=== PATIENT | male | born 1960 | race Caucasian/White ===

== ENCOUNTER 2017-05-26 07:05 | Day surgery (SDC) | payer BC ==
[~2017-05-26 07:05] MED LIST: Lactated Ringers 1,000 ML IV SCH; Lidocaine 1%/Sod Bicarbonate in NS 8.4% 1 ML Syringe PRN; Sodium Chloride 0.9% 10 ML Syringe FLUSH PRN
[2017-05-26] MEDS ORDERED: Propofol 200 MG/20 ML SDV ONE ×3 (07:35→08:39)
--- NOTE | 2017-05-26 07:40 | PCM.PREANE ---
Preanesthetic Assessment - Procedure Proposed Procedure: Diagnostic colonoscopy - Anesthesia/Transfusion/Family Hx Anesthesia History: Prior Anesthesia Without Reaction Family History of Anesthesia Reaction: No Transfusion History: No Prior Transfusion(s) - Review of Systems General: No Symptoms Pulmonary: Other (bronchitis recently resolved 2 weeks ago, SCOTT with CPAP ) Cardiovascular: Other (HTN, HLD) Gastrointestinal: Other (GERD) Neurological: No Symptoms Other: Reports: None, Thyroid Problems (hypothyroidism ) - Physical Assessment NPO Status Date: 05/25/17 NPO Status Time: 22:30 Pulse: 60 O2 Sat by Pulse Oximetry: 96 Respiratory Rate: 16 Blood Pressure: 153/90 Height: 1.75 m Weight: 115 kg ASA Class: 2 Mental Status: Alert & Oriented x3 Airway Class: Mallampati = 2 Dentition: Reports: Normal Dentition Thyro-Mental Finger Breadths: 3 Mouth Opening Finger Breadths: 3 ROM/Head Extension: Full Lungs: Clear to Auscultation, Normal Respiratory Effort Cardiovascular: Regular Rate, Regular Rhythm - Allergies Allergies/Adverse Reactions: Allergies Allergy/AdvReac Type Severity Reaction Status Date / Time mold Allergy Other Verified 05/25/17 12:29 dust Allergy Other Uncoded 05/25/17 12:29 - Blood Blood Available: No Product(s) Available: None - Anesthesia Plan Pre-Op Medication Ordered: None - Acknowledgements Anesthesia Type Planned: MAC Pt an Appropriate Candidate for the Planned Anesthesia: Yes Alternatives and Risks of Anesthesia Discussed w Pt/Guardian: Yes Pt/Guardian Understands and Agrees with Anesthesia Plan: Yes PreAnesthesia Questionnaire - SUBSTANCE USE Smoking Status *Q: Former Smoker (quit 5 years ago) Second Hand Smoke Exposure: No - HOME MEDS Home Medications: Home Meds Albuterol [Ventolin HFA] 1 - 2 puff INH Q4H PRN 05/25/17 [History] Hydrochlorothiazide [Hydrochlorothiazide] 25 mg PO DAILY 05/25/17 [History] Levothyroxine [Synthroid] 50 mcg PO DAILY 05/25/17 [History] Lisinopril [Lisinopril] 20 mg PO DAILY 05/25/17 [History] Lisinopril [Lisinopril] 40 mg PO DAILY 05/25/17 [History] Multivitamin [Daily Brian] 1 tab PO DAILY 05/25/17 [History] Omeprazole 20 mg PO DAILY 05/25/17 [History] Pravastatin Sodium [Pravastatin (Pravachol)] 40 mg PO DAILY 05/25/17 [History] predniSONE [predniSONE] 20 mg PO BID 05/25/17 [History] - CURRENT (IN HOUSE) MEDS Current Meds: Current Medications Lactated Ringer's (Ringers, Lactated) 1,000 mls @ 125 mls/hr IV ASDIRECTED GOPI Stop: 05/26/17 23:00 Lidocaine/Sodium Bicarbonate (Buffered Lidocaine 1% In Ns 8.4%) 0.25 ml .XX ONETIME PRN PRN Reason: Prior to IV Start Stop: 05/26/17 18:00 Sodium Chloride (Saline Flush) 10 ml FLUSH ASDIRECTED PRN PRN Reason: Keep Vein Open Stop: 05/26/17 18:00 Discontinued Medications Fentanyl (Sublimaze) Confirm Administered Dose 100 mcg .ROUTE .STK-MED ONE Stop: 05/26/17 07:47 Propofol (Diprivan 20 Ml) Confirm Administered Dose 200 mg .ROUTE .STK-MED ONE Stop: 05/26/17 07:36 Propofol (Diprivan 20 Ml) Confirm Administered Dose 200 mg .ROUTE .STK-MED ONE Stop: 05/26/17 07:47
[2017-05-26] MEDS ORDERED: fentaNYL 100 MCG/2 ML SDV ONE (07:46)
--- NOTE | 2017-05-26 08:37 | PCM.OPNOTE ---
- General Post-Op/Procedure Note Date of Surgery/Procedure: 05/26/17 Operative Procedure(s): Colonoscopy with descending colonic polypectomy 1 using cold forceps Findings: 1. Anal tags with internal hemorrhoids 2. Moderate to large sigmoid and descending colonic diverticula 3. Diminutive polyp descending colon at about 60 cm Pre Op Diagnosis: Bright red rectal bleeding Post-Op Diagnosis: 1. Anal tags with internal hemorrhoids. 2. Moderate to large sigmoid and descending colonic diverticula. 3. Diminutive polyp descending colon at about 60 cm Anesthesia Technique: MAC, Moderate Sedation Primary Surgeon: Matt Camp Pathology: Diminutive polyp less than 5 mm in diameter EBL in mLs: 0 Complications: None Condition: Good Free Text/Narrative:: After adequate IV sedation and analgesia was obtained with monitoring the patient was placed on his left side. Perianal inspection revealed anal tags with internal hemorrhoids. Digital rectal examination was otherwise unremarkable. The prostate was normal. A lubricated colonoscope was inserted into the rectum and advanced to the cecum without difficulty. The bowel preparation was fair at best. The cecum right colon transverse and descending colons were only remarkable for one 5 mm polyp at 60 cm in the descending colon. These areas are otherwise unremarkable for inflammatory changes or mass lesions. I used the cold forceps to remove the polyp which was captured and sent to pathology. The distal descending colon and sigmoid colon were remarkable for large uncomplicated diverticuli. The rectum in both views was unremarkable. I did see the uncomplicated internal hemorrhoids. Photographs were taken for the patient and for the medical record. Air was removed as I finished the procedure which hhe tolerated well. There were no procedural complications.
--- NOTE | 2017-05-26 08:39 | PCM48HPAN ---
Post Anesthesia Note - EVALUATION WITHIN 48HRS OF ANESTHETIC Vital Signs in Normal Range: Yes Patient Participated in Evaluation: Yes Respiratory Function Stable: Yes Airway Patent: Yes Cardiovascular Function Stable: Yes Hydration Status Stable: Yes Pain Control Satisfactory: Yes Nausea and Vomiting Control Satisfactory: Yes Mental Status Recovered: Yes
[2017-05-26 09:06] VITALS: BP 127/79
== END 2017-05-26 09:30 | disposition home or self-care (01) ==
LOC: JD.SDS 07:05
PROVIDERS: ATTEND Surgery
DX: D12.4 Benign neoplasm of descending colon (principal); K64.4 Residual hemorrhoidal skin tags; K57.30 Diverticulosis of large intestine without perforation or abscess without bleeding; K64.8 Other hemorrhoids; Z86.010 Personal history of colon polyps; J20.9 Acute bronchitis, unspecified; K21.9 Gastro-esophageal reflux disease without esophagitis; I10 Essential (primary) hypertension; E78.2 Mixed hyperlipidemia; G47.33 Obstructive sleep apnea (adult) (pediatric); E03.9 Hypothyroidism, unspecified; Z91.048 Other nonmedicinal substance allergy status; Z79.52 Long term (current) use of systemic steroids; Z79.899 Other long term (current) drug therapy; Z90.89 Acquired absence of other organs; Z98.890 Other specified postprocedural states; Z87.891 Personal history of nicotine dependence; Z68.38 Body mass index [BMI] 38.0-38.9, adult; Z99.89 Dependence on other enabling machines and devices
CPT/HCPCS: 45380; J7120; 00810; J2704; J3010

== ENCOUNTER 2024-01-02 16:52 | Emergency (ER) | payer BC ==
[2024-01-02] MEDS: Sodium Chloride 0.9% 10 ML Syringe FLUSH PRN (18:10)
[2024-01-02] MEDS: Sodium Chloride 0.9% 1,000 ML IV ONE (18:10)
[2024-01-02 18:24] LABS: BASOPHILS PERCENT AUTO 0.1 % (0.0-1.0); EOSINOPHILS ABSOLUTE AUTO 0.1 K/mm3 (0.0-0.4); EOSINOPHILS PERCENT AUTO 1.3 % (0.0-6.0); HEMATOCRIT 40.4 % (42.0-52.0); IMMATURE GRAN ABSOLUTE AUTO 0.03 K/mm3 (0.00-0.05); IMMATURE GRAN PERCENT AUTO 0.4 % (0.0-0.4); LYMPHOCYTES ABSOLUTE AUTO 0.9 K/mm3 (1.0-4.8); LYMPHOCYTES PERCENT AUTO 10.3 % (24.0-44.0); MEAN CORPUSCULAR HEMOGLOBIN 32.6 pg (28.0-32.0); MEAN CORPUSCULAR HGB CONC 34.7 g/dl (32.0-36.0); MEAN CORPUSCULAR VOLUME 94.2 fl (83.0-99.0); MEAN PLATELET VOLUME 8.3 fl (9.4-12.4); MONOCYTES ABSOLUTE AUTO 0.5 K/mm3 (0.0-0.8); MONOCYTES PERCENT AUTO 5.8 % (0.0-8.0); NEUTROPHILS ABSOLUTE AUTO 6.9 K/mm3 (1.8-7.7); NEUTROPHILS PERCENT AUTO 82.1 % (41.0-71.0); PLATELET COUNT,PLT 211 K/mm3 (150-400); RED BLOOD CELL COUNT 4.29 M/mm3 (4.52-5.90); WHITE BLOOD CELL COUNT,WBC 8.43 K/mm3 (3.9-11.3)
[2024-01-02 18:45] LABS: A/G RATIO 1.2 (1-2); ALBUMIN 3.4 g/dl (3.4-5.0); ANION GAP 12.7 (5-15); BILIRUBIN TOTAL 0.7 mg/dL (0.2-1.0); BUN/CREATININE RATIO 12.5 (14-18); CALCIUM 8.3 mg/dL (8.5-10.1); CREATININE 1.2 mg/dL (0.7-1.3); EST CRCL DRUG DOSING (CG) 59.67 mL/min; MAGNESIUM 1.7 mg/dL (1.8-2.4); POTASSIUM,K 3.7 mEq/L (3.5-5.1); PROTEIN TOTAL,TP 6.3 g/dl (6.4-8.2)
[2024-01-02 18:58] LABS: CORONAVIRUS COVID-19 NAA NEGATIVE (NEGATIVE); INFLUENZA A NAA NEGATIVE (NEGATIVE); RESPIRATORY SYNCYTIAL VIR NAA NEGATIVE (NEGATIVE)
[2024-01-02 19:31] VITALS: BP 136/95; PULSE 88
== END 2024-01-02 19:32 | disposition home or self-care (01) ==
LOC: JD.ED 16:52
DX: B34.8 Other viral infections of unspecified site (principal); I10 Essential (primary) hypertension; K21.9 Gastro-esophageal reflux disease without esophagitis; Z86.16 Personal history of COVID-19; Z79.899 Other long term (current) drug therapy; Z91.048 Other nonmedicinal substance allergy status
CPT/HCPCS: 0241U; 36415; 80053; 83735; 85025; 96360; 99283; 99284-25; J3490; J7030